=== PATIENT | female | born 1935 | race Caucasian/White ===

== ENCOUNTER 2017-08-23 15:10 | Emergency (ER) | payer OTHER ==
[2017-08-23] MEDS ORDERED: NA CHLORIDE 0.9% 1,000 ML ONE (15:55)
[2017-08-23 16:03] LABS: Absolute Lymphocytes (CBC) 1.9 K/uL (0.7-4.9); Absolute Monocytes 0.7 K/uL (0.1-1.3); Absolute Neutrophil 2.3 K/uL (1.8-8.0); Basophils % 0.7 % (0-1.3); Eosinophils % 9.7 % (0-4.4); Hematocrit 44.5 % (36.0-45.0); Lymphocytes % 34.5 % (15.3-44.8); MCH 30.2 pg (27.0-35.0); MCV 90.3 fL (80-100); MPV 10.5 fL (7.6-11.3); Monocytes % 12.9 % (3.3-12.3); RBC Red Blood Cell Count 4.93 M/uL (3.86-4.86)
[2017-08-23 16:09] LABS: Protime INR 1.04
--- NOTE | 2017-08-23 16:14 | RAD REPORT ---
EXAM DESCRIPTION: CT - Ct Stroke Brain Wo Cont - 08/23/2017 4:07 pm CLINICAL HISTORY: Slurred speech, CVA CLINICAL HISTORY: None. TECHNIQUE: Axial 5 millimeter thick images of the head were obtained without IV contrast. All CT scans are performed using dose optimization technique as appropriate and may include automated exposure control or mA/KV adjustment according to patient size. FINDINGS: No intracranial hemorrhage, mass, or cerebral edema. No acute cortical based infarction. M ild to moderate atrophy and advanced chronic ischemic changes are present. Ventricular size is in pro portion to volume loss. No extra-axial fluid collections. Meneses matter-white matter differentiation i s preserved. No globe or orbital content abnormality. Arterial calcifications are present. Mastoid air cells are clear. Air-fluid level in the right maxillary sinus. Findings telephoned to the referring physician 1410 hours. IMPRESSION: No intracranial hemorrhage, mass or edema. Mild to moderate atrophy and advanced chronic ischemic change. Chronic ischemic changes can mask nonhemorrhagic acute infarction. MR brain followup can be obtained if there is ongoing concern for acute ischemia. Right maxillary sinusitis.
[2017-08-23 16:20] LABS: Albumin 3.8 g/dL (3.4-5.0); Bilirubin Direct 0.2 mg/dL (0-0.2); Bilirubin Total 0.5 mg/dL (0.2-1.0); CKMB Creatine Kinase MB 1.5 ng/mL (0.3-3.6); Magnesium 2.4 mg/dL (1.8-2.4); Potassium 3.8 mmol/L (3.5-5.1); Protein, Total 7.6 g/dL (6.4-8.2)
[2017-08-23] MEDS ORDERED: ASPIRIN 81 MG CHEWABLE TABLET ONE (16:43)
[2017-08-23] MEDS ORDERED: FOLIC ACID 5 MG/ML VIAL ONE (16:45)
[2017-08-23] MEDS ORDERED: CEFTRIAXONE/SWI 1gm 1 GM/10 ML SYR ONE (16:52)
--- NOTE | 2017-08-23 17:12 | ER ---
Nurse's Notes [facility] Name: Tanika Holloway Age: 82 yrs Sex: Female : 1935 Arrival Date: 08/23/2017 Time: 15:12 Bed 24 Private MD: Royer Irby V Diagnosis: Weakness;Aphasia;Acute sinusitis Presentation: 08/23 15:18 Presenting complaint: states: slurred speech that started approximately 1-3 sv weeks ago. Spouse reports no appetite, fatigue. Son reports pt is speaking slower than normal. Transition of care: patient was not received from another setting of care. Onset of symptoms. Care prior to arrival: None. 15:18 Method Of Arrival: Ambulatory sv 15:18 Acuity: RUTH 3 sv 19:40 No acute neurological deficit is noted. The patients blood glucose was checked before rv arriving to the hospital and was found to be normal. Risk Assessment: Do you want to hurt yourself or someone else? Patient reports no desire to harm self or others. Initial Sepsis Screen: Does the patient meet any 2 criteria? No. Patient's initial sepsis screen is negative. Does the patient have a suspected source of infection? No. Patient's initial sepsis screen is negative. Triage Assessment: 19:41 The onset of the patients symptoms was August 16, 2017 at 08:00. General: Appears in no rv apparent distress. comfortable, Behavior is calm, cooperative. 19:42 Neuro: Reports weakness. rv Stroke Activation: Symptom onset > 6 hours Physician: Stroke Attending; Name: ; Notified At: ; Arrived At: Physician: Chief Stroke Resident; Name: ; Notified At: ; Arrived At: Physician: Stroke Resident; Name: ; Notified At: ; Arrived At: Physician: ED Attending; Name: ; Notified At: ; Arrived At: Physician: ED Resident; Name: ; Notified At: ; Arrived At: Historical: - Allergies: 15:20 No Known Allergies; sv - Home Meds: 15:20 None [Active]; sv - PMHx: 15:20 None; sv - PSHx: 15:20 None; sv - Immunization history:: Adult Immunizations up to date. - Family history:: not pertinent. - Ebola Screening: : Patient negative for fever greater than or equal to 101.5 degrees Fahrenheit, and additional compatible Ebola Virus Disease symptoms Patient denies exposure to infectious person Patient denies travel to an Ebola-affected area in the 21 days before illness onset. - Social history:: Smoking status: unknown. Screenin:12 Abuse screen: Denies threats or abuse. Denies injuries from another. Nutritional rv screening: No deficits noted. Tuberculosis screening: No symptoms or risk factors identified. Fall Risk None identified. Assessment: 16:01 General: Appears in no apparent distress. comfortable, Behavior is calm, cooperative, rv appropriate for age. Pain: Denies pain. Neuro: Level of Consciousness is awake, alert, obeys commands, Oriented to person, place, time, situation. Cardiovascular: Capillary refill < 3 seconds. Respiratory: Airway is patent. GI: No signs and/or symptoms were reported involving the gastrointestinal system. : No signs and/or symptoms were reported regarding the genitourinary system. EENT: No signs and/or symptoms were reported regarding the EENT system. Derm: Skin is intact. 16:10 Reassessment: PATIENT TAKEN TO CT SCAN. rv 16:18 Reassessment: PATIENT CAME BACK FROM CT SCAN. HOOKED BACK TO MONITOR AND IV FLUID. rv 17:11 Reassessment: Patient appears in no apparent distress at this time. Patient and/or rv family updated on plan of care and expected duration. Pain level reassessed. AWAITING URINE SAMPLE FROM THE PATIENT. PATIENT IS COMFORTABLE AND VITAL SIGNS ARE STABLE. 18:12 The patient has not been NPO before screening. The patient is alert, and able to follow rv commands. The patient exhibits slurred or garbled speech. The patient is not exhibiting difficulty speaking. The patient does not exhibit difficulty understanding words. The patient is able to swallow own secretions with no drooling or need for suction. Patient tolerated one teaspoon of water. No drooling, immediate coughing, gurgling, or clearing of the throat was noted. The patient passed the bedside swallow screening. Oral medications may be given as ordered. Contact Physician for further diet orders. Provider notified of bedside swallow screening results: Domenico Berry MD. T-PA (Activase) Screening:. 18:33 Reassessment: Patient appears in no apparent distress at this time. Patient and/or rv family updated on plan of care and expected duration. Pain level reassessed. AWAITING CALL FROM RECEIVING FACILITY. Vital Signs: 15:20 BP 155 / 72; Pulse 69; Resp 16; Temp 97.8; Pulse Ox 95% ; Height 5 ft. 8 in. (172.72 sv cm); 17:09 BP 140 / 90; Pulse 71; Resp 10; Pulse Ox 97% on R/A; rv NIH Stroke Scale Scores: 16:01 NIHSS Score: 0 rv 17:03 NIHSS Score: 1 ross ED Course: 15:12 Patient arrived in ED. sb2 15:14 Royer Irby MD is Private Physician. sb2 15:20 Triage completed. sv 15:21 Arm band placed on right wrist. sv 15:30 Patient placed in an exam room, on a stretcher. sv 15:37 Inserted saline lock: 20 gauge in right antecubital area, using aseptic technique. mb3 Blood collected. 15:40 Domenico Berry MD is Attending Physician. ross 16:06 CT completed. Patient moved to CT via stretcher. Patient moved back from CT. cw1 16:07 CT Stroke Brain w/o Contrast In Process Unspecified. EDMS 16:16 X-ray completed. Patient tolerated procedure well. tm4 16:16 XRAY Chest (1 view) In Process Unspecified. EDMS 19:41 No provider procedures requiring assistance completed. Patient transferred, IV remains rv in place. intact. 19:43 Patient has correct armband on for positive identification. Placed in gown. Bed in low rv position. Call light in reach. Side rails up X 1. court monitor on. Pulse ox on. NIBP on. Administered Medications: 16:00 Drug: NS 0.9% 500 ml Route: IV; Rate: bolus; Site: right antecubital; rv 17:09 Follow up: Response: No adverse reaction; IV Status: Completed infusion rv 16:58 Drug: Rocephin - (cefTRIAXone) 1 grams Route: IVPB; Infused Over: 30 mins; Site: right rv antecubital; 17:08 Follow up: Response: No adverse reaction rv 16:58 Drug: Aspirin Chewable Tablet 324 mg Route: PO; rv 17:08 Follow up: Response: No adverse reaction rv 16:58 Drug: foLIC Acid 1 mg Route: IVPB; Site: right antecubital; rv 17:08 Follow up: Response: No adverse reaction rv 17:09 Drug: NS 0.9% 1000 ml Route: IV; Rate: 125 ml/hr; Site: right antecubital; rv Outcome: 17:12 ER care complete, transfer ordered by ross 19:41 Transferred by ground EMS to [facility], Transfer form completed. rv X-rays sent w/ patient. 19:41 Condition: stable 19:41 Instructed on the need for transfer. 19:43 Patient left the ED. rv NIH Stroke Scale - NIH Stroke Score Date: 08/23/2017 Time: 16:01 Total Score = 0 1a. Level of Consciousness (LOC) - 0(Alert) 1b. Level of Consciousness (LOC) (Year \T\ Age) - 0(Both) 1c. LOC Commands (Open \T\ Closes Eyes/Junior Linux Administrator) - 0(Both) 2. Best Gaze (Lateral Gaze Paresis) - 0(Normal) 3. Visual Field Loss - 0(No visual loss) 4. Facial Palsy - 0(Normal) 5a. Left Arm: Motor (10-second hold) - 0(No drift) 5b. Right Arm: Motor (10-second hold) - 0(No drift) 6a. Left Leg: Motor (5-second hold - always test supine) - 0(No drift) 6b. Right Leg: Motor (5-second hold - always test supine) - 0(No drift) 7. Limb Ataxia (finger/nose \T\ heel/dhillon - test with eyes open) - 0(Absent) 8. Sensory Loss (pinprick arms/legs/face) - 0(Normal) 9. Best Language: Aphasia (description/naming/reading) - 0(No aphasia) 10. Dysarthria (speech clarity - read or repeat words) - 0(Normal) 11. Extinction and Inattention (visual/tactile/auditory/spatial/personal) - 0(No abnormality) Initials: rv NIH Stroke Scale - NIH Stroke Score Date: 08/23/2017 Time: 17:03 Total Score = 1 1a. Level of Consciousness (LOC) - 0(Alert) 1b. Level of Consciousness (LOC) (Year \T\ Age) - 0(Both) 1c. LOC Commands (Open \T\ Closes Eyes/Junior Linux Administrator) - 0(Both) 2. Best Gaze (Lateral Gaze Paresis) - 0(Normal) 3. Visual Field Loss - 0(No visual loss) 4. Facial Palsy - 0(Normal) 5a. Left Arm: Motor (10-second hold) - 0(No drift) 5b. Right Arm: Motor (10-second hold) - 0(No drift) 6a. Left Leg: Motor (5-second hold - always test supine) - 0(No drift) 6b. Right Leg: Motor (5-second hold - always test supine) - 0(No drift) 7. Limb Ataxia (finger/nose \T\ heel/dhillon - test with eyes open) - 0(Absent) 8. Sensory Loss (pinprick arms/legs/face) - 0(Normal) 9. Best Language: Aphasia (description/naming/reading) - 1(Mild to moderate aphasia) 10. Dysarthria (speech clarity - read or repeat words) - 0(Normal) 11. Extinction and Inattention (visual/tactile/auditory/spatial/personal) - 0(No abnormality) Initials: ross Addendum: 08/28/2017 10:55 Addendum: Culture Results: Positive urine culture. Phone call Attempt #1 Faxed hb to [facility] Transfer Center [facility] [phone]. Signatures: Dispatcher [employer] Fiordaliza Rojas RN RN Domenico Smith MD MD cha Marroquin, Tracy tm4 Marbella Bailey cw1 Ann-Marie Mackenzie RN RN Brigida Ritchie sb2 Francisco Fletcher, RN RN mb3 Ankur Higgins RN RN rv Corrections: (The following items were deleted from the chart) 08/23 15:21 15:18 Presenting complaint: Father states: slurred speech x1 week sv approximately. Spouse reports no appetite, fatigue. sv 15:30 15:18 Presenting complaint: states: slurred speech x1 week sv approximately. Spouse reports no appetite, fatigue. Son reports pt is speaking slower than normal. sv
--- NOTE | 2017-08-23 17:12 | EDPHYS ---
Physician Documentation [facility] Name: Tanika Holloway Age: 82 yrs Sex: Female : 1935 Arrival Date: 08/23/2017 Time: 15:12 Bed 24 Private MD: Royer Irby V ED Physician Domenico Berry HPI: 08/23 15:48 This 82 yrs old Female presents to ER via Ambulatory with complaints of ross Slurred Speech, General Weakness, Decreased Appetite. 15:48 The patient presents to the emergency department with a speech or higher order brain ross function problem, aphasia, that is mild. Onset: The symptoms/episode began/occurred 5 day(s) ago. Context: occurred at home. Associated signs and symptoms: The patient has no apparent associated signs or symptoms. Severity of symptoms: At their worst the symptoms were mild in the emergency department the symptoms are unchanged. Patient's baseline: Neuro:. Current symptoms: Currently, the patient is not experiencing any symptoms, the patient feels back to baseline. The patient has not experienced similar symptoms in the past. Historical: - Allergies: 15:20 No Known Allergies; sv - Home Meds: 15:20 None [Active]; sv - PMHx: 15:20 None; sv - PSHx: 15:20 None; sv - Immunization history:: Adult Immunizations up to date. - Family history:: not pertinent. - Ebola Screening: : Patient negative for fever greater than or equal to 101.5 degrees Fahrenheit, and additional compatible Ebola Virus Disease symptoms Patient denies exposure to infectious person Patient denies travel to an Ebola-affected area in the 21 days before illness onset. - Social history:: Smoking status: unknown. ROS: 15:48 Constitutional: Negative for fever, chills, and weight loss, Eyes: Negative for injury, ross pain, redness, and discharge, ENT: Negative for injury, pain, and discharge, Neck: Negative for injury, pain, and swelling, Cardiovascular: Negative for chest pain, palpitations, and edema, Respiratory: Negative for shortness of breath, cough, wheezing, and pleuritic chest pain, Abdomen/GI: Negative for abdominal pain, nausea, vomiting, diarrhea, and constipation, Back: Negative for injury and pain, : Negative for injury, bleeding, discharge, and swelling, MS/Extremity: Negative for injury and deformity, Skin: Negative for injury, rash, and discoloration, Psych: Negative for depression, anxiety, suicide ideation, homicidal ideation, and hallucinations, Allergy/Immunology: Negative for hives, rash, and allergies, Endocrine: Negative for neck swelling, polydipsia, polyuria, polyphagia, and marked weight changes, Hematologic/Lymphatic: Negative for swollen nodes, abnormal bleeding, and unusual bruising. Exam: 15:50 Constitutional: This is a well developed, well nourished patient who is awake, alert, ross and in no acute distress. Head/Face: Normocephalic, atraumatic. Eyes: Pupils equal round and reactive to light, extra-ocular motions intact. Lids and lashes normal. Conjunctiva and sclera are non-icteric and not injected. Cornea within normal limits. Periorbital areas with no swelling, redness, or edema. ENT: Nares patent. No nasal discharge, no septal abnormalities noted. Tympanic membranes are normal and external auditory canals are clear. Oropharynx with no redness, swelling, or masses, exudates, or evidence of obstruction, uvula midline. Mucous membranes moist. Neck: Trachea midline, no thyromegaly or masses palpated, and no cervical lymphadenopathy. Supple, full range of motion without nuchal rigidity, or vertebral point tenderness. No Meningismus. Chest/axilla: Normal chest wall appearance and motion. Nontender with no deformity. No lesions are appreciated. Cardiovascular: Regular rate and rhythm with a normal S1 and S2. No gallops, murmurs, or rubs. Normal PMI, no JVD. No pulse deficits. Respiratory: Lungs have equal breath sounds bilaterally, clear to auscultation and percussion. No rales, rhonchi or wheezes noted. No increased work of breathing, no retractions or nasal flaring. Abdomen/GI: Soft, non-tender, with normal bowel sounds. No distension or tympany. No guarding or rebound. No evidence of tenderness throughout. Back: No spinal tenderness. No costovertebral tenderness. Full range of motion. Female : Normal external genitalia. Skin: Warm, dry with normal turgor. Normal color with no rashes, no lesions, and no evidence of cellulitis. 17:13 Neuro: symptoms for 5 days, not a tpa candidiate. [facility] Vital Signs: 15:20 BP 155 / 72; Pulse 69; Resp 16; Temp 97.8; Pulse Ox 95% ; Height 5 ft. 8 in. (172.72 sv cm); 17:09 BP 140 / 90; Pulse 71; Resp 10; Pulse Ox 97% on R/A; rv NIH Stroke Scale Scores: 16:01 NIHSS Score: 0 rv 17:03 NIHSS Score: 1 ross MDM: 15:40 Patient medically screened. [facility] 15:50 Data reviewed: vital signs, nurses notes, lab test result(s), EKG, radiologic studies. [facility] 08/23 15:47 Order name: Basic Metabolic Panel; Complete Time: 16:22 [facility] 08/23 15:47 Order name: CBC with Diff; Complete Time: 16:22 [facility] 08/23 15:47 Order name: Ckmb; Complete Time: 16:22 [facility] 08/23 15:47 Order name: CPK; Complete Time: 16:22 [facility] 08/23 15:47 Order name: LFT's; Complete Time: 16:22 [facility] 08/23 15:47 Order name: Magnesium; Complete Time: 16:22 [facility] 08/23 15:47 Order name: NT PRO-BNP; Complete Time: 16:22 [facility] 08/23 15:47 Order name: PT-INR; Complete Time: 16:22 [facility] 08/23 15:47 Order name: Ptt, Activated; Complete Time: 16:22 [facility] 08/23 15:47 Order name: Troponin (emerg Dept Use Only); Complete Time: 16:22 [facility] 08/23 15:47 Order name: Lipase; Complete Time: 16:22 [facility] 08/23 15:47 Order name: Urine Culture [facility] 08/23 17:23 Order name: Urine Microscopic Only; Complete Time: 19:25 08/23 17:36 Order name: Urine Dipstick--Ancillary (enter results); Complete Time: 19:25 08/23 15:47 Order name: XRAY Chest (1 view); Complete Time: 19:25 [facility] 08/23 15:47 Order name: EKG; Complete Time: 15:48 [facility] 08/23 15:47 Order name: Cardiac monitoring; Complete Time: 16:00 [facility] 08/23 15:47 Order name: EKG - Nurse/Tech; Complete Time: 17:09 [facility] 08/23 15:47 Order name: IV Saline Lock; Complete Time: 16:00 [facility] 08/23 15:47 Order name: Labs collected and sent; Complete Time: 16:00 [facility] 08/23 15:47 Order name: O2 Per Protocol; Complete Time: 16:00 [facility] 08/23 15:47 Order name: O2 Sat Monitoring; Complete Time: 16:00 [facility] 08/23 15:47 Order name: Urine Dipstick-Ancillary (obtain specimen); Complete Time: 17:18 [facility] 08/23 15:47 Order name: CT Stroke Brain w/o Contrast; Complete Time: 16:22 [facility] Administered Medications: 16:00 Drug: NS 0.9% 500 ml Route: IV; Rate: bolus; Site: right antecubital; rv 17:09 Follow up: Response: No adverse reaction; IV Status: Completed infusion rv 16:58 Drug: Rocephin - (cefTRIAXone) 1 grams Route: IVPB; Infused Over: 30 mins; Site: right rv antecubital; 17:08 Follow up: Response: No adverse reaction rv 16:58 Drug: Aspirin Chewable Tablet 324 mg Route: PO; rv 17:08 Follow up: Response: No adverse reaction rv 16:58 Drug: foLIC Acid 1 mg Route: IVPB; Site: right antecubital; rv 17:08 Follow up: Response: No adverse reaction rv 17:09 Drug: NS 0.9% 1000 ml Route: IV; Rate: 125 ml/hr; Site: right antecubital; rv Disposition: 18 17:12 Transfer ordered to [facility]. Diagnosis are Weakness, Aphasia, Acute sinusitis. - Reason for transfer: Higher level of care. - Accepting physician is to [facility] , neuro. - Condition is Stable. - Problem is new. - Symptoms are unchanged. NIH Stroke Scale - NIH Stroke Score Date: 08/23/2017 Time: 16:01 Total Score = 0 1a. Level of Consciousness (LOC) - 0(Alert) 1b. Level of Consciousness (LOC) (Year \T\ Age) - 0(Both) 1c. LOC Commands (Open \T\ Closes Eyes/Splicing Technician) - 0(Both) 2. Best Gaze (Lateral Gaze Paresis) - 0(Normal) 3. Visual Field Loss - 0(No visual loss) 4. Facial Palsy - 0(Normal) 5a. Left Arm: Motor (10-second hold) - 0(No drift) 5b. Right Arm: Motor (10-second hold) - 0(No drift) 6a. Left Leg: Motor (5-second hold - always test supine) - 0(No drift) 6b. Right Leg: Motor (5-second hold - always test supine) - 0(No drift) 7. Limb Ataxia (finger/nose \T\ heel/dhillon - test with eyes open) - 0(Absent) 8. Sensory Loss (pinprick arms/legs/face) - 0(Normal) 9. Best Language: Aphasia (description/naming/reading) - 0(No aphasia) 10. Dysarthria (speech clarity - read or repeat words) - 0(Normal) 11. Extinction and Inattention (visual/tactile/auditory/spatial/personal) - 0(No abnormality) Initials: rv NIH Stroke Scale - NIH Stroke Score Date: 08/23/2017 Time: 17:03 Total Score = 1 1a. Level of Consciousness (LOC) - 0(Alert) 1b. Level of Consciousness (LOC) (Year \T\ Age) - 0(Both) 1c. LOC Commands (Open \T\ Closes Eyes/Splicing Technician) - 0(Both) 2. Best Gaze (Lateral Gaze Paresis) - 0(Normal) 3. Visual Field Loss - 0(No visual loss) 4. Facial Palsy - 0(Normal) 5a. Left Arm: Motor (10-second hold) - 0(No drift) 5b. Right Arm: Motor (10-second hold) - 0(No drift) 6a. Left Leg: Motor (5-second hold - always test supine) - 0(No drift) 6b. Right Leg: Motor (5-second hold - always test supine) - 0(No drift) 7. Limb Ataxia (finger/nose \T\ heel/dhillon - test with eyes open) - 0(Absent) 8. Sensory Loss (pinprick arms/legs/face) - 0(Normal) 9. Best Language: Aphasia (description/naming/reading) - 1(Mild to moderate aphasia) 10. Dysarthria (speech clarity - read or repeat words) - 0(Normal) 11. Extinction and Inattention (visual/tactile/auditory/spatial/personal) - 0(No abnormality) Initials: ross Signatures: Dispatcher [employer] Fiordaliza Rojas RN RN sv Anderson, Corey, MD MD ross Ronaldo, Ankur, RN RN rv Corrections: (The following items were deleted from the chart) 19:43 17:12 08/23/2017 17:12 Transfer ordered to [facility]. rv Diagnosis is Weakness; Aphasia; Acute sinusitis. Reason for transfer: Higher level of care. Accepting physician is to [facility] , neuro. Condition is Stable. Problem is new. Symptoms are unchanged. ross
--- NOTE | 2017-08-23 17:12 | RAD REPORT ---
EXAM DESCRIPTION: RAD - Chest Single View - 08/23/2017 4:17 pm CLINICAL HISTORY: Slurred speech COMPARISON: May 2016 TECHNIQUE: AP portable chest image was obtained 1604 hours . FINDINGS: Lung yepez are fibrotic similar to comparison. No superimposed failure, infiltrate or mas s. Heart and vasculature are normal. No measurable pleural effusion and no pneumothorax. No acute bon y abnormality seen. No acute aortic findings suspected. IMPRESSION: Chronic interstitial lung disease similar to comparison. No acute findings seen.
[2017-08-23 17:37] LABS: Urine Blood NEGATIVE (NEG); Urine Glucose NEGATIVE (NEG); Urine Protein NEGATIVE (NEG); Urine Specific Gravity 1.015 (1.005-1.030)
[2017-08-23 17:38] LABS: Urine Bacteria <20 /HPF (<20); Urine Culture Reflex Order NOT NEEDED; Urine RBC <5 /HPF (NONE SEEN)
--- NOTE | 2017-08-24 09:30 | EKG ---
Test Date: 2017-08-23 Test Time: 16:20:54 Cold Press Operator: MEASUREMENT RESULTS: Intervals: Rate: 65 VA: 166 QRSD: 80 QT: 418 QTc: 434 [place]: P: 34 VA: 166 QRS: 55 T: 55 INTERPRETIVE STATEMENTS: Normal sinus rhythm Normal ECG No previous ECG available for comparison Electronically Signed On 08-24-17 09:28:02 CDT by Pierre Cosby
== END 2017-08-23 19:43 | disposition short-term general hospital (02) ==
LOC: ER 15:10
DX: R47.01 Aphasia (principal); J01.90 Acute sinusitis, unspecified
CPT/HCPCS: 36415; 70450; 71045; 80048; 80076; 82550; 82553; 83690; 83735; 83880; 84484; 85025; 85610; 85730; 87086; 87088; 93005; 96361; 96374; 96375; 99285; J0696; J7030; 81003; 81015; 87077; 87186